=== PATIENT | male | born 1980 | race Two or more races ===

== ENCOUNTER → 2024-06-25 | Outpatient (CLI) | payer BC ==
--- NOTE | 2024-06-25 10:15 | CA ---
Exercise Stress Test Report Name: Gwyn Claire Exam Date: 06/25/2024 08:49 Exam Location: [facility] Ht (in): 71 Wt (lb): 160 BSA: 1.92 Ordering Phys: Gertrudis Mckeon DO Referring Phys: Molly Irving Technologist: Mukund Aguillon Age: 43 Gender: M : 1980 Procedure CPT: Indications: I25.10 ATHSCL HEART DISEASE OF [place] CORONARY ART ICD-10 Codes: Patient History: HYPERCHOLESTEROLEMIA, FAMILY HX OF HEART DISEASE Medications: Meds past 24 hrs: Pretest Chest Pain: STRESS TEST Jung Protocol Exercise Duration (min:sec): 13:[address] Depressions (mm): Angina Score: Klein Score: Resting HR (bpm): 116 Peak HR (bpm): 189 Resting BP (mmHg): 136 / 86 Peak BP (mmHg): 179 / 76 MPHR: 175 Target HR: 149 % MPHR: 108 METS: 14.8 Total Dose: Peak Dose: Atropine: Double Product: 53872 BP Response: Stress Termination: MAX EXERTION/TARGET HR Stress Symptoms: NO SYMPTOMS Stress Summary: ECG ANALYSIS Resting ECG: Normal sinus rhythm normal axis normal interval Stress ECG: Patient exercised on Jung protocol for 13 and half minutes achieving 15 METS 85% of predicted maximal heart rate without chest pain or diagnostic ST segment depression CONCLUSIONS Excellent exercise tolerance Negative stress test by EKG criteria Dr. Ar Grijalva MD (Electronically Signed) Final Date: 25 June 2024 10:14
== END | disposition home or self-care (01) ==
LOC: RADNMMAIN 08:32
PROVIDERS: ATTEND Family Medicine
CPT/HCPCS: 93017

== ENCOUNTER 2024-11-25 10:39 | Day surgery (SDC) | payer BC ==
[2024-11-21 14:32] VITALS: BMI 23.7
[~2024-11-25 10:39] MED LIST: LIDOCAINE 1% (10MG/ML) FOR IV START INTRADERMA PRN
[2024-11-25] MEDS: IV FLUID CONTINUATION 1,000 ML IV ONE (11:03)
[2024-11-25 11:08] VITALS: TEMP 97.6
[2024-11-25] MEDS: LACTATED RINGERS 1,000 ML IV SCH (11:22)
[2024-11-25] MEDS ORDERED: PROPOFOL 10 MG/ML 20 ML VIAL IV ONE (11:58)
--- NOTE | 2024-11-25 12:00 | P.GSHP ---
History of Present Illness H&P Date: 11/25/24 Chief Complaint: Colon cancer screening 43-year-old male here for colonoscopy. He has not had 1 previously. No bowel complaints. No family history of colon cancer. Sister with history of polyps. Past Medical History Past Medical History: Hyperlipidemia History of Any Multi-Drug Resistant Organisms: None Reported Past Surgical History: Hernia Repair Past Anesthesia/Blood Transfusion Reactions: Postoperative Nausea & Vomiting (PONV) Smoking Status: Never smoker - Past Family History Father Family Medical History: Myocardial Infarction ([place]) Mother Additional Family Medical History / Comment(s): Heart arrhythima Medications and Allergies Home Medications Medication Instructions Recorded Confirmed Type Atorvastatin Calcium 20 mg PO HS 11/21/24 11/25/24 History Fluticasone Nasal [place] [Flonase 1 spray DAILY 11/21/24 11/25/24 History Nasal [place]] Allergies Allergy/AdvReac Type Severity Reaction Status Date / Time No Known Allergies Allergy Verified 11/25/24 11:06 Surgical - Exam Vital Signs Temp Pulse Resp BP Pulse Ox 97.6 F 77 18 146/70 98 11/25/24 11:07 11/25/24 11:07 11/25/24 11:07 11/25/24 11:07 11/25/24 11:07 Physical exam: General: Well-developed, well-nourished HEENT: Normocephalic, sclerae nonicteric Abdomen: Nontender, nondistended Extremities: No edema Neuro: Alert and oriented Assessment and Plan (1) Colon cancer screening Narrative/Plan: Will proceed with colonoscopy at this time. Current Visit: Yes Status: Acute Code(s): Z12.11 - ENCOUNTER FOR SCREENING FOR MALIGNANT NEOPLASM OF COLON SNOMED Code(s): 094674027
--- NOTE | 2024-11-25 12:15 | P.PCN ---
Date of Procedure: 11/25/24 Procedure(s) Performed: PREOPERATIVE DIAGNOSIS: Colon cancer screening POSTOPERATIVE DIAGNOSIS: Normal exam PROCEDURE: Colonoscopy ANESTHESIA: MAC SURGEON: Arslan Hollingsworth M.D. SPECIMENS: None ENDOSCOPIC PROCEDURE: The patient was placed on the endoscopy table in the left decubitus position. The Olympus colonoscope was inserted into the anus and passed under direct visualization to the base of the cecum. The appendiceal orifice was visualized. From that point the scope was slowly withdrawn inspecti ng all surfaces carefully. There were no neoplastic inflammatory or polypoid lesions throughout the cecum, ascending, transverse, descending, sigmoid and rectum. There was no visible diverticulosis noted. The patient's colon was somewhat tortuous. Digital rectal examination was normal. The patient was taken to the recovery room in stable condition per anesthesia guidelines. RECOMMENDATIONS: Resume diet. Repeat colonoscopy 10 years.
[2024-11-25 12:47] VITALS: BP 107/64; PULSE 86; RESP 14
== END 2024-11-25 13:09 | disposition home or self-care (01) ==
LOC: ORWHC2ENDO 10:39
PROVIDERS: ATTEND Surgery
DX: Z12.11 Encounter for screening for malignant neoplasm of colon (principal); E78.5 Hyperlipidemia, unspecified; F17.200 Nicotine dependence, unspecified, uncomplicated; Z98.890 Other specified postprocedural states; Z82.49 Family history of ischemic heart disease and other diseases of the circulatory system; Z79.899 Other long term (current) drug therapy
CPT/HCPCS: 45378; J2704